=== PATIENT | male | born 1945 | race Caucasian/White ===

== ENCOUNTER 2021-06-13 10:19 | Emergency (ER) | payer OTHER, MEDICARE ==
[2021-06-13 10:38] VITALS: PULSE 74; BMI 25.7
[2021-06-13] MEDS ORDERED: ASPIRIN 81 MG CHEWABLE TABLETS PO ONE (11:21)
[2021-06-13 11:43] LABS: BASO % 0.4 % (0-2.0); EOS % 0.6 % (0-4.5); HEMATOCRIT 40.9 % (35.4-49); HEMOGLOBIN 14.1 GM/dL (11.7-16.9); LYMPH % 19.4 % (8-40); MCHC 34.5 g/dl (32.0-35.9); MEAN CELL VOLUME 89.7 fl (80-96); MEAN PLT VOLUME 8.7 fl (7.5-11.1); MONO % 10.2 % (3.8-10.2); NEUT % 69.4 % (42.8-82.8); PLATELET COUNT 242 10^3/uL (134-434); RBC 4.56 M/mm3 (4.00-5.60); RDW 12.9 % (11.9-15.9); WHITE BLOOD COUNT 5.4 K/mm3 (4.0-10.0)
[2021-06-13] MEDS ORDERED: ASPIRIN 325 MG TABLET ONE (11:43)
[2021-06-13 11:51] LABS: INR 0.98 (0.83-1.09); PROTHROMBIN TIME (PATIENT) 11.3 SEC (9.7-13.0)
[2021-06-13 11:54] LABS: ACTIVATED PTT 29.4 SECONDS (25.2-36.5)
[2021-06-13 12:04] LABS: CALCIUM 8.6 mg/dL (8.5-10.1)
[2021-06-13 12:06] LABS: ALBUMIN 3.9 g/dl (3.4-5.0); BLOOD UREA NITROGEN 15.2 mg/dL (7-18)
[2021-06-13 12:08] LABS: CREATININE 1.2 mg/dL (0.55-1.3)
[2021-06-13 12:09] LABS: TOT PROT 7.3 g/dl (6.4-8.2)
[2021-06-13 12:11] LABS: BILIRUBIN,TOTAL 0.8 mg/dL (0.2-1)
[2021-06-13 12:13] LABS: N-TERMINAL BNP 28.6 pg/ml (5-450)
[2021-06-13 17:10] VITALS: BP 148/79; TEMP 98.2
[2021-06-14 08:06] LABS: SARS-CoV-2 NAA Not Detected (Not Detected)
== END 2021-06-13 17:10 | disposition left against medical advice (07) ==
LOC: JER 10:19
DX: R07.9 Chest pain, unspecified (principal)
CPT/HCPCS: 36415; 71046-TC-FY; 80053; 83880; 84484; 85025; 85610; 85730; 93005; 93010; 99285-25; C9803-CS; U0003; U0005